=== PATIENT | female | born 1990 | race Asian ===

== ENCOUNTER 2022-08-19 12:00 | Outpatient (CLI) | payer MEDICAID, SELFPAY | END 2022-08-19 12:01 | disposition home or self-care (01) | LOC: NFLDREF 08-22 07:59 | PROVIDERS: Visit Provider Advanced Practice Midwife | DX: Z34.93 Encounter for supervision of normal pregnancy, unspecified, third trimester (principal); Z3A.31 31 weeks gestation of pregnancy | CPT/HCPCS: 76816; 86592 ==

== ENCOUNTER 2022-08-19 12:20 | Outpatient (CLI) | payer MEDICAID, SELFPAY ==
--- NOTE | 2022-08-19 12:15 | CRLHL7_ITS ---
For Patients: As a result of the Century Cures Act, medical imaging exams and procedure reports are released immediately into your electronic medical record. You may view this report before your referring provider. If you have questions, please contact your health care provider. INDICATION: Third trimester scan, evaluate growth. COMPARISON: none TECHNIQUE: Real time ward scale imaging of the fetus was performed. FINDINGS: Sonographic imaging demonstrates a single living intrauterine gestation. Fetus demonstrates a regular cardiac rate of 139 beats per minute. Fetus has a vertex position. The placenta lies left anterior. Amniotic fluid volume appears normal and there is a single deepest vertical pocket: 4.7 cm. The estimated weight is 1736gm which lies at the 68th %. The HC/AC ratio measures 1.04 range (0.96-1.17). BPD 49th percentile. HC 46th percentile. AC 82nd percentile. FL 39th percentile. IMPRESSION: The placental cord insertion is 2.5 cm from the edge of the placenta. Sonographic gestational age 31 weeks 1 day and sonographic due date of 10/20/2022. Sonographic age is 5 days ahead of the clinical age. Estimated weight 68th percentile. Abdominal circumference 82nd percentile. Dictated by Justin Hudson MD @ 08/19/2022 1:28:01 PM (Electronically Signed)
== END 2022-08-19 12:21 | disposition home or self-care (01) ==
PROVIDERS: Visit Provider Advanced Practice Midwife
DX: Z34.93 Encounter for supervision of normal pregnancy, unspecified, third trimester (principal); Z3A.31 31 weeks gestation of pregnancy
CPT/HCPCS: 76816